=== PATIENT | female | born 1960 | race Caucasian/White ===

== ENCOUNTER 2020-05-27 15:00 | Emergency (ER) | payer MEDICARE, MEDICAID ==
[2020-05-27 15:51] LABS: ANION GAP 12.4 mmol/L (5-15); CHLORIDE,CL 96 mmol/L (98-115); SODIUM,NA 134 mmol/L (136-145)
--- NOTE | 2020-05-27 15:53 | EDM.PDOC ---
ED HPI GENERAL MEDICAL PROBLEM - General Chief Complaint: Lower Extremity Injury/Pain Stated Complaint: leg pain Time Seen by Provider: 05/27/20 15:30 Source of Information: Reports: Patient, Retirement Records, Old Records, RN History Limitations: Reports: Altered Mental Status (Schizoaffective disorder bipolar type) - History of Present Illness INITIAL COMMENTS - FREE TEXT/NARRATIVE: 59-year-old female transferred from [facility] today for evaluation of frequent falls over the last couple days. Affective disorder, bipolar type, she reportedly has had 4 falls over the last couple of days. She complains only of left leg pain. She is able to ambulate. She states that she does use a walker. She denies any recent illnesses, fever, chills, nausea or vomiting. She denies headache, shortness of breath, chest pain. Nurses report that the she is asked about the use of a Lane lift and since that time his now had 4 falls. She was able to ambulate in the emergency room. She was brought by EMS for further evaluation. She's followed by [facility] staff. She has a history of noncompliance with regards her medication which is since the resulted in her dependent care at the [facility]. In addition to her mental disorder she does have a history of chronic venous insufficiency with pedal edema hypertension, morbid obesity reflux, nicotine dependence, osteoarthritis, and recent history of vaginal bleeding. Onset: Unknown/Unsure Duration: Chronic Location: Reports: Lower Extremity, Left, Lower Extremity, Right, Generalized Quality: Reports: Ache Severity: Mild Improves with: Reports: Rest Worsens with: Reports: Movement Associated Symptoms: Reports: No Other Symptoms Left Leg Pain Score (Numeric/FACES): 10 - Related Data Allergies Allergy/AdvReac Type Severity Reaction Status Date / Time carbamazepine [From Tegretol] Allergy Hives Verified 05/27/20 15:30 chlorpromazine HCl Allergy Other Verified 05/27/20 15:30 [From Thorazine] clozapine [From Clozaril] Allergy Other Verified 05/27/20 15:30 lithium Allergy Other Verified 05/27/20 15:30 ziprasidone HCl [From Geodon] AdvReac Anxiety Verified 05/27/20 15:30 ziprasidone mesylate AdvReac Anxiety Verified 05/27/20 15:30 [From Geodon] Home Meds: Home Meds Divalproex Sodium [Depakote ER] 1,000 mg PO QPM 12/17/15 [History] Divalproex Sodium [Depakote ER] 500 mg PO QAM 12/17/15 [History] Multivitamin [Multivitamins] 1 tab PO QAM 12/17/15 [History] risperiDONE [Risperdal] 3 mg PO BID 12/17/15 [History] Acetaminophen 650 mg PO Q4H PRN 05/27/20 [History] Albuterol Sulfate [Proair Digihaler] 2 puff INH Q4H PRN 05/27/20 [History] Carboxymethylcellulose Sodium [Artificial Tears] 2 drop EYEBOTH QID PRN 05/27/20 [History] Thayer/Min Oil/Mary/Wool Alcoh [Eucerin Creme] 1 applic TOP Q1H PRN 05/27/20 [History] Eucalyptus/Menthol [Cough Drops] 1 lozenge PO Q3H PRN 05/27/20 [History] Mag Hydrox/Aluminum Hyd/Simeth [Mylanta Maximum Strength Liq] 30 ml PO Q4H PRN 05/27/20 [History] Methyl Salicylate/Menthol [Bengay Greaseless Cream] 1 applic TOP TID 05/27/20 [History] Metoprolol Succinate [Toprol XL] 25 mg PO QAM 05/27/20 [History] guaiFENesin/Dextromethorphan [Guaifenesin Dm Syrup] 20 ml PO QID 05/27/20 [History] hydroCHLOROthiazide [Hydrochlorothiazide] 25 mg PO QAM 05/27/20 [History] Past Medical History Cardiovascular History: Reports: High Cholesterol, Other (See Below) Other Cardiovascular History: atherosclerosis of abdominal aorta Respiratory History: Reports: COPD Other Respiratory History: smoker Gastrointestinal History: Reports: Diverticulosis, Other (See Below) Other Gastrointestinal History: history of viral hepatitis C, HCV antibody negative Genitourinary History: Reports: Other (See Below) Other Genitourinary History: overactive bladder Musculoskeletal History: Reports: Other (See Below) Other Musculoskeletal History: DJD, pronation of feet, avascular necrosis of femoral head Neurological History: Reports: Other (See Below) Other Neuro History: dystonic tremor Psychiatric History: Reports: Schizophrenia, Other (See Below) Other Psychiatric History: personality disorder Endocrine/Metabolic History: Reports: Other (See Below) Other Endocrine/Metabolic History: impaired fasting glucose Hematologic History: Reports: Other (See Below) Other Hematologic History: TTP Dermatologic History: Reports: Eczema Social & Family History - Tobacco Use Smoking Status *Q: Former Smoker Years of Tobacco use: 48 Packs/Tins Daily: 3 Used Tobacco, but Quit: Yes Month/Year Tobacco Last Used: 10 - Caffeine Use Caffeine Use: Reports: Coffee, Soda Other Caffeine Use: mountain dew - Recreational Drug Use Recreational Drug Type: Reports: Codiene, Other (see below) Other Recreational Drug Type: speed - per pt Review of Systems - Review of Systems Review Of Systems: See Below Constitutional: Denies: Fever Eyes: Reports: No Symptoms Ears: Reports: No Symptoms Nose: Reports: No Symptoms Mouth/Throat: Reports: No Symptoms Respiratory: Denies: Shortness of Breath, Wheezing, Cough Cardiovascular: Denies: Chest Pain GI/Abdominal: Denies: Abdominal Pain, Bloody Stool, Diarrhea, Nausea, Vomiting Genitourinary: Denies: Dysuria, Painful Urination, Vaginal Bleeding Musculoskeletal: Reports: Leg Pain Skin: Reports: Other (Chronic venous stasis) Neurological: Reports: No Symptoms Psychiatric: Reports: Mood Lability, Anxiety, Agitation. Denies: Confusion ED EXAM, GENERAL - Physical Exam Exam: See Below Exam Limited By: Altered Mental Status (Schizoaffective disorder bipolar type) General Appearance: Alert, No Apparent Distress, Obese (Morbid obesity) Eye Exam: Bilateral Eye: EOMI, PERRL Ears: Normal External Exam, Normal Canal, Other (Right TM fluid behind the ear) Ear Exam: Right Ear: TM Dull, Left Ear: TM normal, Bilateral Ear: Canal Normal Nose: Normal Inspection Throat/Mouth: Normal Inspection, Normal Voice, No Airway Compromise Head: Atraumatic, Normocephalic Neck: Normal Inspection, Supple, Non-Tender. No: Lymphadenopathy (L), Lymphadenopathy (R) Respiratory/Chest: No Respiratory Distress, Lungs Clear, Normal Breath Sounds, No Accessory Muscle Use Cardiovascular: Regular Rate, Rhythm GI/Abdominal: Normal Bowel Sounds, Soft, Non-Tender, Other (Abdominal obesity) Back Exam: Normal Inspection Extremities: Pedal Edema (Chronic pedal edema with venous stasis insufficiency and lichenification of the lower legs due to chronic swelling). No: Increased Warmth, Redness Neurological: Alert, No Motor/Sensory Deficits Psychiatric: Depressed Mood, Flat Affect Skin Exam: Other (Chronic lichenification of the lower extremities due to chronic pedal edema and venous stasis changes) Lymphatic: No Adenopathy Course - Vital Signs Last Recorded V/S: Last Vital Signs Temp 98.5 F 05/27/20 15:15 Pulse 98 05/27/20 15:15 Resp 20 05/27/20 15:15 BP 155/57 H 05/27/20 15:15 Pulse Ox 91 L 05/27/20 15:15 - Orders/Labs/Meds Orders: Active Orders 24 hr Category Date Time Status CULTURE BLOOD [BC] Stat Lab 05/27/20 16:40 Received CULTURE BLOOD [BC] Stat Lab 05/27/20 16:57 Received CULTURE URINE [RM] Stat Lab 05/27/20 15:45 Received Blood Culture x2 Reflex Set [OM.PC] Stat Oth 05/27/20 16:43 Ordered Labs: Laboratory Tests 05/27/20 05/27/20 05/27/20 Range/Units 15:26 15:26 15:45 WBC 20.22 H (5.00-10.00) 10^3/uL RBC 4.01 (3.80-5.50) 10^6/uL Hgb 13.3 (12.0-16.0) g/dL Hct 39.4 (37.0-47.0) % MCV 98.3 H (82.0-92.0) fL MCH 33.2 H (27.0-31.0) pg MCHC 33.8 (32.0-36.0) g/dL RDW 17.1 H (11.5-14.5) % Plt Count 240 (150-400) 10^3/uL MPV 11.2 H (7.4-10.4) fL Immature Gran % (Auto) 0.8 (0.0-5.0) % Neut % (Auto) 79.8 H (50.0-70.0) % Lymph % (Auto) 9.0 L (20.0-40.0) % [place] % (Auto) 10.0 H (2.0-8.0) % Eos % (Auto) 0.0 L (1.0-3.0) % Baso % (Auto) 0.4 (0.0-1.0) % Neut # (Auto) 16.13 H (2.50-7.00) 10^3/uL Lymph # (Auto) 1.82 (1.00-4.00) 10^3/uL [place] # (Auto) 2.03 H (0.10-0.80) 10^3/uL Eos # (Auto) 0.00 L (0.10-0.30) 10^3/uL Baso # (Auto) 0.08 (0.00-0.10) 10^3/uL Immature Gran # (Auto) 0.16 (0.00-0.50) 10^3/uL Sodium 134 L (136-145) mmol/L Potassium 4.0 (3.3-5.3) mmol/L Chloride 96 L (98-115) mmol/L Carbon Dioxide 29.6 (21.0-32.0) mmol/L Anion Gap 12.4 (5-15) mmol/L BUN 13 (6-25) mg/dL Creatinine 0.77 (0.51-1.17) mg/dL Est Cr Clr Drug Dosing 64.27 mL/min Estimated GFR (MDRD) > 60 mL/min Glucose 146 H (75 - 99) mg/dL Calcium 9.4 (8.7-10.3) mg/dL Specimen Type Urincath Urine Color Yellow (YELLOW) Urine Appearance Clear (CLEAR) Urine pH 7.0 (5.0-9.0) Ur Specific Bruce 1.025 (1.005-1.030) Urine Protein >=300 H (NEGATIVE) mg/dL Urine Glucose (UA) Negative (NEGATIVE) mg/dL Urine Ketones Trace H (NEGATIVE) mg/dL Urine Occult Blood Moderate H (NEGATIVE) Urine Nitrite Negative (NEGATIVE) Urine Bilirubin Negative (NEGATIVE) Urine Urobilinogen 1.0 (0.2-1.0) E.U./dL Ur Leukocyte Esterase Negative (NEGATIVE) U Hyaline Cast (Auto) Occasional Urine RBC 10-20 H (0-5) /HPF Urine WBC 10-20 H (0-5) /HPF Ur Epithelial Cells Moderate H /LPF Urine Bacteria Few (NONE TO FEW) /HPF Meds: Medications Discontinued Medications Generic Name Dose Route Start Last Admin Trade Name Freq PRN Reason Stop Dose Admin Azithromycin 500 mg 05/27/20 17:37 Zithromax PO 05/27/20 17:38 ONETIME ONE Levofloxacin 750 mg 05/27/20 17:38 Levaquin PO 05/27/20 17:39 ONETIME ONE - Radiology Interpretation Free Text/Narrative:: X-rays 2 views left tib-fib No acute fracture. No osseous lesion. Extensive edema throughout the lower leg nonspecific Chest x-ray Cardiomegaly and central vascular congestion. Peripheral wedge-shaped opacity abutting the right hemidiaphragm in the right lung base. Finding is nonspecific. However, pneumonia is possible. X-ray tib-fib right No acute fracture the tibia or fibula or knee and ankle joint osteoarthritis X-ray left femur 2 views No visible fracture Small joint effusion. Femoral acetabular articulation is normal alignment. X-rays 2 views right femur No acute fracture. Femoral acetabular and knee joint articulations are normal alignment possible small knee joint effusion - Re-Assessments/Exams Free Text/Narrative Re-Assessment/Exam: 05/27/20 17:21 She is resting comfortably in bed she was able to transport to go to the bathroom to the [facility]. She is in no acute distress or pain. Departure - Departure Time of Disposition: 17:51 Disposition: DC/Tfer to [facility] Condition: Fair Clinical Impression: 3+ pitting edema, Morbid obesity with BMI of 50.0-59.9, adult, Schizoaffective disorder, bipolar type, Infiltrate of lower lobe of right lung present on imaging study Leukocytosis, unspecified Qualifiers: Leukocytosis type: unspecified Qualified Code(s): D72.829 - Elevated white blood cell count, unspecified DJD (degenerative joint disease) of knee Qualifiers: Osteoarthritis type: primary Laterality: bilateral Qualified Code(s): M17.0 - Bilateral primary osteoarthritis of knee - Discharge Information Referrals: PCP,Not In Area [Ordering Only Provider] - Forms: ED Department Discharge Sepsis Event Note (ED) - Evaluation Sepsis Screening Result: No Definite Risk - Focused Exam Vital Signs: Vital Signs Temp Pulse Resp BP Pulse Ox 05/27/20 15:15 98.5 F 98 20 155/57 H 91 L - My Orders Last 24 Hours: My Active Orders 05/27/20 15:45 CULTURE URINE [RM] Stat 05/27/20 16:40 CULTURE BLOOD [BC] Stat 05/27/20 16:43 Blood Culture x2 Reflex Set [OM.PC] Stat 05/27/20 16:57 CULTURE BLOOD [BC] Stat - Assessment/Plan Last 24 Hours: My Active Orders 05/27/20 15:45 CULTURE URINE [RM] Stat 05/27/20 16:40 CULTURE BLOOD [BC] Stat 05/27/20 16:43 Blood Culture x2 Reflex Set [OM.PC] Stat 05/27/20 16:57 CULTURE BLOOD [BC] Stat Assessment:: Leukocytosis Infiltrate right lower lung base, possible pneumonia Schizoaffective disorder bipolar type Morbid obesity Chronic lower extremity pitting edema with lichenification and venous stasis chronic Osteoarthritis bilateral knees Plan: 1. Blood cultures were ordered and pending 2. Begin levofloxacin 750 mg daily for 5 days. 3. Azithromycin 500 mg day 1, 250 mg days 2 through 5. 4. Follow-up with primary care for CBC with differential lab results and follow- up chest x-ray.
--- NOTE | 2020-05-27 16:53 | CR ---
[id number] RAD/RAD Tibia Fibula Left Exam: RAD Tibia Fibula Left Indication:LEG PAIN. Comparison: No prior imaging for comparison. Discussion: No acute fracture or osseous lesion. Knee and ankle joints are in normal alignment. Extensive soft tissue swelling. Impression: As above. Vinicio Alexis MD 05/27/20 [id number] Thank you for allowing us to participate in the care of your patient.
--- NOTE | 2020-05-27 17:28 | CR ---
[id number] RAD/RAD Chest PA or AP 1V EXAM: RAD Chest PA or AP 1V INDICATION: LEUKOCYTOSIS. COMPARISON: None. DISCUSSION: Cardiomegaly and central vascular congestion. Peripheral wedge-shaped opacity abutting the right hemidiaphragm in the right lung base. Finding is nonspecific. However, pneumonia is possible. Noncontrast chest CT would be of benefit if findings are clinically equivocal. IMPRESSION: As above. Vinicio Alexis MD 05/27/20 [id number] Thank you for allowing us to participate in the care of your patient.
--- NOTE | 2020-05-27 17:30 | CR ---
[id number] RAD/RAD Femur Left 2V Exam: RAD Femur Left 2V Indication:FALL. Comparison: No prior imaging for comparison. Discussion: No visible fracture Small knee joint effusion. Femoroacetabular articulation is in normal alignment. Impression: As above. Vinicio Alexis MD 05/27/20 [phone] Thank you for allowing us to participate in the care of your patient.
--- NOTE | 2020-05-27 17:31 | CR ---
[id number] RAD/RAD Femur Right 2V Exam: RAD Femur Right 2V Indication:FALL. Comparison: No prior imaging for comparison. Discussion: No acute fracture. Femoroacetabular and knee articulations are in normal alignment. Possible small knee joint effusion. Impression: No acute findings. Vinicio Alexis MD 05/27/20 [id number] Thank you for allowing us to participate in the care of your patient.
--- NOTE | 2020-05-27 17:31 | CR ---
[id number] RAD/RAD Tibia Fibula Right Exam: RAD Tibia Fibula Right Indication:FALL. Comparison: Discussion: No acute fracture of the tibia or fibula. Knee and ankle joint osteoarthritis. Impression: As above. Vinicio Alexis MD 05/27/20 [id number] Thank you for allowing us to participate in the care of your patient.
[2020-05-27] MEDS ORDERED: Azithromycin 250 MG Tab PO ONE (17:37)
[2020-05-27] MEDS ORDERED: Levofloxacin 500 MG Tab PO ONE (17:38)
[2020-05-27 17:53] VITALS: BP 169/55; PULSE 93
== END 2020-05-27 20:00 ==
LOC: KA.ED 15:00
DX: M17.0 Bilateral primary osteoarthritis of knee (principal); R60.0 Localized edema; F25.0 Schizoaffective disorder, bipolar type; D72.829 Elevated white blood cell count, unspecified; E66.01 Morbid (severe) obesity due to excess calories; Z68.43 Body mass index [BMI] 50.0-59.9, adult; R91.8 Other nonspecific abnormal finding of lung field; Z87.891 Personal history of nicotine dependence; Z88.8 Allergy status to other drugs, medicaments and biological substances; R82.90 Unspecified abnormal findings in urine
CPT/HCPCS: 36415; 71045; 73590-LT; 73590-RT; 80048; 81001; 85025; 87040; 87077; 87086; 99284; 99284-25; A9270-GY

== ENCOUNTER 2020-09-15 12:00 | Emergency (ER) | payer MEDICARE, MEDICAID ==
[2020-09-15 12:31] VITALS: BP 145/78; PULSE 93
--- NOTE | 2020-09-15 14:43 | EDM.PDOC ---
ED HPI GENERAL MEDICAL PROBLEM - General Chief Complaint: General Time Seen by Provider: 09/15/20 13:50 Source of Information: Reports: Patient, Provider History Limitations: Reports: Altered Mental Status (chronic; psychoses) - History of Present Illness INITIAL COMMENTS - FREE TEXT/NARRATIVE: Patient presents with report of worsening of chronic bed sores on LLE. She has bipolar and schizoaffective disorder per Denise Newberry NP who called me with report. She is being considered for hospice. She was covid positive in July. - Related Data Allergies Allergy/AdvReac Type Severity Reaction Status Date / Time carbamazepine [From Tegretol] Allergy Hives Verified 05/27/20 15:30 chlorpromazine HCl Allergy Other Verified 05/27/20 15:30 [From Thorazine] clozapine [From Clozaril] Allergy Other Verified 05/27/20 15:30 lithium Allergy Other Verified 05/27/20 15:30 metronidazole Allergy Other Verified 09/15/20 12:22 sulfamethoxazole Allergy Other Verified 09/15/20 12:22 ziprasidone HCl [From Geodon] AdvReac Anxiety Verified 05/27/20 15:30 ziprasidone mesylate AdvReac Anxiety Verified 05/27/20 15:30 [From Geodon] Home Meds: Home Meds Divalproex Sodium [Depakote ER] 500 mg PO QAM 12/17/15 [History] Divalproex Sodium [Depakote ER] 500 mg PO QPM 12/17/15 [History] Multivitamin [Multivitamins] 1 tab PO QAM 12/17/15 [History] risperiDONE [Risperdal] 3 mg PO BID 12/17/15 [History] Acetaminophen 650 mg PO Q6H PRN 05/27/20 [History] Albuterol Sulfate [Proair Digihaler] 2 puff INH Q4H PRN 05/27/20 [History] Carboxymethylcellulose Sodium [Artificial Tears] 2 drop EYEBOTH QID PRN 05/27/20 [History] Mag Hydrox/Aluminum Hyd/Simeth [Mylanta Maximum Strength Liq] 30 ml PO Q4H PRN 05/27/20 [History] Methyl Salicylate/Menthol [Bengay Greaseless Cream] 1 applic TOP TID 05/27/20 [History] Metoprolol Succinate [Toprol XL] 25 mg PO QAM 05/27/20 [History] guaiFENesin/Dextromethorphan [Guaifenesin Dm Syrup] 20 ml PO QID PRN 05/27/20 [History] hydroCHLOROthiazide [Hydrochlorothiazide] 25 mg PO QAM 05/27/20 [History] Amino Ac/Protein Hydr/Whey Pro [Liquacel Liquid Protein] 30 ml PO BID 09/15/20 [History] Magnesium Hydroxide [Milk of Magnesia] 30 ml PO DAILY PRN 09/15/20 [History] Potassium Chloride 10 meq PO DAILY 09/15/20 [History] QUEtiapine [SEROquel] 100 mg PO BEDTIME 09/15/20 [History] cephALEXin [Cephalexin] 500 mg PO QID 09/15/20 [History] Past Medical History HEENT History: Reports: Other (See Below) Other HEENT History: dry eyes Cardiovascular History: Reports: High Cholesterol, Other (See Below) Other Cardiovascular History: atherosclerosis of abdominal aorta Respiratory History: Reports: COPD Other Respiratory History: smoker Gastrointestinal History: Reports: Diverticulosis, Other (See Below) Other Gastrointestinal History: history of viral hepatitis C, HCV antibody negative Genitourinary History: Reports: Other (See Below) Other Genitourinary History: overactive bladder Musculoskeletal History: Reports: Other (See Below) Other Musculoskeletal History: DJD, pronation of feet, avascular necrosis of femoral head Neurological History: Reports: Other (See Below) Other Neuro History: dystonic tremor Psychiatric History: Reports: Schizophrenia, Other (See Below) Other Psychiatric History: personality disorder Endocrine/Metabolic History: Reports: Other (See Below) Other Endocrine/Metabolic History: impaired fasting glucose Hematologic History: Reports: Other (See Below) Other Hematologic History: TTP Dermatologic History: Reports: Eczema Social & Family History - Tobacco Use Tobacco Use Status *Q: Unknown Ever Used Tobacco - Caffeine Use Caffeine Use: Reports: Coffee, Soda Other Caffeine Use: mountain dew ED ROS GENERAL - Review of Systems Review Of Systems: See Below (limited) Constitutional: Denies: Fever HEENT: Reports: No Symptoms Respiratory: Denies: Shortness of Breath Cardiovascular: Denies: Chest Pain GI/Abdominal: Denies: Abdominal Pain Musculoskeletal: Reports: Leg Pain ED EXAM, GENERAL - Physical Exam Exam: See Below Exam Limited By: Altered Mental Status General Appearance: Alert, Obese Eye Exam: Bilateral Eye: EOMI, Normal Inspection, PERRL Ears: Normal External Exam, Hearing Grossly Normal Nose: Normal Inspection, No Blood Throat/Mouth: Normal Inspection, Normal Lips, Normal Voice, No Airway Compromise Head: Atraumatic, Normocephalic Neck: Normal Inspection, Full Range of Motion Respiratory/Chest: Lungs Clear, Decreased Breath Sounds (in bases), Other (Mild tachypnea with shallow breaths). No: Crackles, Rales, Rhonchi, Wheezing, Stridor Cardiovascular: Regular Rate, Rhythm, No Murmur Extremities: Normal Capillary Refill, Other (Open sores are present on left posterior heel and posterior left mid-calf. The left heel has black eschar over the calcaneus that is firm but mobile. No bone exposed. No drainage or significant erythema.). No: Increased Warmth, Mottled, Pallor Neurological: Alert, No Motor/Sensory Deficits Psychiatric: Anxious Skin Exam: Warm, Dry, Normal Color Course - Vital Signs Last Recorded V/S: Last Vital Signs Temp 97.8 F 09/15/20 12:05 Pulse 93 09/15/20 12:30 Resp 22 H 09/15/20 12:30 BP 145/78 H 09/15/20 12:30 Pulse Ox 95 09/15/20 12:30 - Orders/Labs/Meds Orders: Active Orders 24 hr Category Date Time Status CBC WITH AUTO DIFF [HEME] Stat Lab 09/15/20 14:18 Ordered COMPREHENSIVE METABOLIC PN,CMP [CHEM] Stat Lab 09/15/20 14:18 Ordered LACTIC ACID [CHEM] Stat Lab 09/15/20 14:18 Ordered - Re-Assessments/Exams Free Text/Narrative Re-Assessment/Exam: 09/15/20 17:[address] shows no evidence of osteomyelitis of leg or calcaneus. BMP is okay. Lactate is pending (all labs are send-outs due to our lab techs all out with [facility], some we could get at [facility]). I discussed case with Dr. Ortiz. Will treat with doxycycline tonight and send back to [place]. Dr. Corona and Denise will figure out plan tomorrow morning for treatment, podiatry, hospice, etc. 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 - Discharge Information Referrals: Michelle Burns MD [Primary Care Provider] - Sepsis Event Note (ED) - Evaluation Sepsis Screening Result: No Definite Risk - Focused Exam Vital Signs: Vital Signs Temp Pulse Resp BP Pulse Ox 09/15/20 12:30 93 22 H 145/78 H 95 09/15/20 12:05 97.8 F 94 24 H 157/82 H 95 - My Orders Last 24 Hours: My Active Orders 09/15/20 14:18 CBC WITH AUTO DIFF [HEME] Stat COMPREHENSIVE METABOLIC PN,CMP [CHEM] Stat LACTIC ACID [CHEM] Stat - Assessment/Plan Last 24 Hours: My Active Orders 09/15/20 14:18 CBC WITH AUTO DIFF [HEME] Stat COMPREHENSIVE METABOLIC PN,CMP [CHEM] Stat LACTIC ACID [CHEM] Stat
--- NOTE | 2020-09-15 15:37 | CT ---
[id number] CT/CT Tibia Fibula Left WO IV EXAM: CT Tibia Fibula Left WO IV INDICATION: PRESSURE SORES OF LEFT CALCANEUS AND LEFT MID CALF. COMPARISON: May 27, 2020 radiographs. FINDINGS: Open wound in the subcutaneous tissues of the posterior lateral mid leg. Infiltrating subcutaneous edema throughout the leg. No soft tissue gas. No plain CT evidence of acute osteomyelitis. MRI could provide further evaluation of the muscle compartments and bones if there is continued clinical concern. Moderate osteoarthritis of the knee. No fracture or suspicious bone lesion is identified. IMPRESSION: 1. Open wound posterior lateral subcutaneous tissues of the leg. Mild diffuse infiltrating subcutaneous edema. No drainable fluid collection or evidence of osteomyelitis. Deyvi Osborne MD 09/15/20 7247 Thank you for allowing us to participate in the care of your patient.
== END 2020-09-15 19:00 ==
LOC: KA.ED 12:00
DX: L89.620 Pressure ulcer of left heel, unstageable (principal); L97.229 Non-pressure chronic ulcer of left calf with unspecified severity; J44.9 Chronic obstructive pulmonary disease, unspecified; F20.9 Schizophrenia, unspecified; R41.82 Altered mental status, unspecified; Z88.2 Allergy status to sulfonamides; Z88.8 Allergy status to other drugs, medicaments and biological substances; Z79.899 Other long term (current) drug therapy
CPT/HCPCS: 36415; 73700; 80053; 83605; 85025; 99283; 99284; A9270